=== PATIENT | female | born 1995 | race Caucasian/White ===

== ENCOUNTER 2017-05-11 21:17 | Outpatient (CLI) | payer MEDICAID ==
[~2017-05-11] VITALS: Ht 162.6 cm; Wt 78.9 kg
[~2017-05-11 21:17] MED LIST: ONDA4TAB97 PO; PREN-127 PO; PROM-110 PO
[2017-05-11 21:57] VITALS: BP 124/74; Ht 162.6 cm; Wt 78.9 kg
[2017-05-11] MEDS ORDERED: HYDROmorphone HCL 2 MG TAB PO ONE (22:10)
[2017-05-11 22:25] LABS: PLATELET COUNT, AUTOMATED 205 K/uL (150-450)
[2017-05-11] MEDS ORDERED: IBUPROFEN 800 MG TAB PO ONE (23:05)
== END 2017-05-11 23:30 | disposition home or self-care (01) ==
LOC: OB 21:17 → UNDOADMOB 21:17 → OB 21:17 → L&D 21:17 → UNDODISOB 23:30 → L&D 23:30 → OB 23:30 → EDSTATUS 05-13 12:27
PROVIDERS: ATTEND Obstetrics & Gynecology
DX: O26.892 Other specified pregnancy related conditions, second trimester (principal); Z3A.22 22 weeks gestation of pregnancy
CPT/HCPCS: 36415; 81001; 85025; G0463; 99213; G0378; G0379